=== PATIENT | male | born 1950 | race Caucasian/White ===

== ENCOUNTER 2020-10-22 12:08 | Outpatient (CLI) | payer MEDICARE | END 2020-10-22 12:09 | disposition home or self-care (01) | LOC: CSHCT 12:08 | PROVIDERS: ATTEND Internal Medicine Hematology & Oncology | DX: C47.2 Malignant neoplasm of peripheral nerves of lower limb, including hip (principal) | CPT/HCPCS: 71260; 82565 ==

== ENCOUNTER 2021-06-22 13:00 | Outpatient (CLI) | payer MEDICARE | END 2021-06-22 13:01 | disposition home or self-care (01) | LOC: CSHMRI 13:00 | PROVIDERS: ATTEND Radiology Radiation Oncology | DX: Z85.831 Personal history of malignant neoplasm of soft tissue (principal); Z98.890 Other specified postprocedural states; Z92.3 Personal history of irradiation | CPT/HCPCS: 71260; 82565 ==

== ENCOUNTER 2024-07-06 16:39 | Emergency (ER) | payer MEDICARE, OTHER ==
[2024-07-06] MEDS ORDERED: Bacitracin 1 PK ONE (19:35)
[2024-07-06 19:50] LABS: #Basophils 0.05 10x3/uL (0.0-0.2); #Eosinophils 0.25 10x3/uL (0.0-0.5); #Monocytes 0.88 10x3/uL (0.0-1.1); #Neutrophils 8.51 10x3/uL (1.5-8.4); %Basophils 0.4 % (0.0-2.0); %Eosinophils 2.2 % (0.0-6.0); %Lymphocytes 13.3 % (18.0-47.0); %Monocytes 7.8 % (0.0-10.0); Hematocrit 45.4 % (38.8-50.0); Hemoglobin 15.1 g/dL (13.5-17.5); Mean Corpuscular HGB CONC 33.3 g/dL (32.0-36.0); Mean Corpuscular Hemoglobin 30.7 pg (27.0-33.0); Mean Corpuscular Volume 92.3 fL (81.2-95.1); Mean Platelet Volume 9.8 fL (7.4-10.4); Platelet Count 230 10x3/uL (150-450); RBC Distribution Width 12.1 % (11.5-14.5); Red Blood Cell (RBC) Count 4.92 10x6/uL (4.32-5.72); White Blood Cell (WBC) Count 11.4 10x3/uL (3.5-10.5)
[2024-07-06 20:05] LABS: ALT (SGPT) 22 U/L (8-55); AST (SGOT) 23 U/L (5-34); Albumin 3.7 g/dL (3.4-4.8); Alkaline Phosphatase 77 U/L (40-110); Anion Gap 15 mmol/L (10-20); BUN (Urea Nitrogen) 20 mg/dL (8.4-25.7); Bilirubin, Total 0.5 mg/dL (0.2-1.2); Calc. Creatinine Clearance 0 mL/min (70-130); Calcium 9.3 mg/dL (7.8-10.44); Carbon Dioxide 27 mmol/L (23-31); Chloride 101 mmol/L (98-107); Estimated GFR 64; Globulin 3.3 g/dL (2.4-3.5); Glucose 144 mg/dL (83-110); Potassium 4.5 mmol/L (3.5-5.1); Sodium 138 mmol/L (136-145)
== END 2024-07-06 20:52 | disposition home or self-care (01) ==
LOC: CSHERS 16:39
DX: L02.414 Cutaneous abscess of left upper limb (principal); I25.10 Atherosclerotic heart disease of native coronary artery without angina pectoris; Z55.6 Problems related to health literacy
CPT/HCPCS: 36415; 80053; 83605; 84145; 85025; 86140; 99283